=== PATIENT | male | born 2000 | race Caucasian/White ===

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

== ENCOUNTER 2021-04-09 07:48 | Outpatient (CLI) | payer BC, SELFPAY ==
[2021-04-09] VITALS (8 sets, daily range): BP systolic 132–145; BP diastolic 71–83; PULSE 73–84; RESP 16–18; TEMP 36.6–36.7; O2SAT 97–99
== END 2021-04-09 10:22 | disposition home or self-care (01) ==
PROVIDERS: PCP Family Medicine; Visit Provider Nurse Practitioner Family
DX: U07.1 COVID-19 (principal)
CPT/HCPCS: 96365